=== PATIENT | female | born 1935 | race Caucasian/White ===

== ENCOUNTER 2018-05-12 06:10 | Day surgery (SDC) | payer OTHER ==
[~2018-05-12 06:10] MED LIST: ALLOPURINOL100 MG PO; AVAPRO150 MG PO; CARDURA1 MG PO; LEVO-T88 MCG PO; TEMAZEPAM15 MG PO
== END 2018-05-12 13:45 | disposition home or self-care (01) ==
LOC: AMB-ENDOS 06:10
DX: K57.30 Diverticulosis of large intestine without perforation or abscess without bleeding (principal); K64.1 Second degree hemorrhoids